=== PATIENT | male | born 1935 | race Caucasian/White ===

== ENCOUNTER 2019-04-08 23:38 | Emergency (ER) | payer MEDICARE, OTHER ==
[~2019-04-08] VITALS: Ht 188 cm; Wt 81.8 kg
[~2019-04-08 23:38] MED LIST: ATOR80TA PO; CALC500T11 PO; CLON0.1T20 PO; CLOP75TA35 PO; CLOT15CR74 TP; COLL30OI TP; HUM7525 SQ; HYDR-4383 PO; LANTUS SQ; LOSA50TA3 PO; NOR5T PO
[2019-04-09] MEDS ORDERED: normal saline 1000ml 1,000 ML IV ONE (02:17)
--- NOTE | 2019-04-09 02:30 | NUR ---
DR. RAHMAN TALKING WITH PT AND AND REPROTS THAT DR. ALBERT, GI, TO TAKE PT TO GI LAB IN AM. PT AWAITING POCEDURE.
[2019-04-09 02:31] LABS: PARTIAL THROMBOPLASTIN TIME 33 SECONDS (22-32)
[2019-04-09 02:34] LABS: ALANINE AMINOTRANSFERASE 31 U/L (12-78); ALBUMIN 3.6 G/DL (3.4-5.0); ALBUMIN/GLOBULIN RATIO 0.9 (1.1-1.5); ALKALINE PHOSPHATASE 211 IU/L (46-116); ANION GAP 9 (8-16); ASPARTATE AMINO TRANSFERASE 22 U/L (10-37); BILIRUBIN,TOTAL 0.4 MG/DL (0.1-1.0); BLOOD UREA NITROGEN 33 MG/DL (7-18); BUN/CREATININE RATIO 15.3 (5.4-32.0); CALCIUM 8.8 MG/DL (8.5-10.1); CHLORIDE 106 MMOL/L (99-107); CREATININE 2.15 MG/DL (0.60-1.10); GLUCOSE 82 MG/DL (70-104); MAGNESIUM 2.1 MG/DL (1.5-2.4); SODIUM 141 MMOL/L (135-145); TOTAL CARBON DIOXIDE 25.9 MMOL/L (24-32); TOTAL PROTEIN 7.7 G/DL (6.4-8.2); eGFR 30 ML/MIN
[2019-04-09 02:54] LABS: BASOPHILS # (AUTO) 0.1 X10'3 (0-0.2); BASOPHILS % (AUTO) 1.1 % (0-1); EOSINOPHILS # (AUTO) 0.3 X10'3 (0-0.9); EOSINOPHILS % (AUTO) 4.8 % (0-6); HEMATOCRIT 32.1 % (42.0-52.0); HEMOGLOBIN 10.4 g/dl (14.0-17.9); LYMPHOCYTES # (AUTO) 0.7 X10'3 (1.1-4.8); LYMPHOCYTES % (AUTO) 9.8 % (21-51); MEAN CORPUSCULAR HEMOGLOBIN 28.8 PG (27.0-31.0); MEAN CORPUSCULAR HGB CONC 32.5 g/dL (33.0-36.5); MEAN CORPUSCULAR VOLUME 88.6 FL (78-98); MEAN PLATELET VOLUME 7.1 FL (7.4-10.4); MONOCYTES # (AUTO) 0.4 X10'3 (0-0.9); NEUTROPHILS # (AUTO) 5.7 X10'3 (1.8-7.7); NEUTROPHILS % (AUTO) 79.3 % (42-75); PLATELET COUNT 318 X10'3 (140-440); RED BLOOD COUNT 3.63 X10'6 (4.70-6.10); RED CELL DISTRIBUTION WIDTH 13.9 % (11.5-14.5); WHITE BLOOD COUNT 7.2 X10'3 (4.5-11.0)
[2019-04-09] MEDS ORDERED: morphine 2 MG/ML inj. syringe IV ONE (03:20)
[2019-04-09] MEDS ORDERED: morphine 4 MG/ML inj SYRINge IV ONE (05:20)
--- NOTE | 2019-04-09 05:21 | NUR ---
PT WITH INICREADING PAIN TO THE LEFT THROAT. DR. RAHMAN UPDATED AND WILL ORDER [facility] PAIN MEDS.
[2019-04-09 06:45] VITALS: BP 150/64
[2019-04-09] MEDS ORDERED: LIDOcaine Viscous 15ml cup ONE (06:45)
[2019-04-09] MEDS ORDERED: MIDAZolam 5mg/5ml vial ONE (06:45)
[2019-04-09] MEDS ORDERED: fentaNYL/PF 50MCG/1 ML 2ML syringe ONE (06:45)
--- NOTE | 2019-04-09 06:46 | NUR ---
Pt to GI lab for procedure
[2019-04-09 07:32] VITALS: BP 138/59
[2019-04-09 07:42] VITALS: BP 117/50
[2019-04-09 07:52] VITALS: BP 112/55
[2019-04-09 08:00] VITALS: BP 128/61
== END 2019-04-09 08:45 | disposition home or self-care (01) ==
LOC: ER 23:38
DX: T17.228A Food in pharynx causing other injury, initial encounter (principal); I25.10 Atherosclerotic heart disease of native coronary artery without angina pectoris; I10 Essential (primary) hypertension; E11.9 Type 2 diabetes mellitus without complications; F32.9 Major depressive disorder, single episode, unspecified; C43.9 Malignant melanoma of skin, unspecified; Z86.73 Personal history of transient ischemic attack (TIA), and cerebral infarction without residual deficits; Z95.1 Presence of aortocoronary bypass graft; Z79.4 Long term (current) use of insulin; Z79.899 Other long term (current) drug therapy; X58.XXXA Exposure to other specified factors, initial encounter; Y93.89 Activity, other specified; Y92.89 Other specified places as the place of occurrence of the external cause; Y99.8 Other external cause status
CPT/HCPCS: 36415; 43239; 43247; 43249; 71045; 80053; 83735; 84484; 85025; 85610; 85730; 96374; 96376; 99152; 99153; 99285; C1726; J2250; J2270; J3010; J7030; J7040; 88305; 88312; 88342; 99284